=== PATIENT | female | born 1995 | race African-American/Black ===

== ENCOUNTER 2018-12-23 06:18 | Emergency (ER) | payer OTHER ==
[~2018-12-23] VITALS: Ht 160 cm; Wt 75.0 kg
[2018-12-23] MEDS ORDERED: BISACODYL 10 MG SUPP PR ONE (07:15)
--- NOTE | 2018-12-23 07:33 | REP ---
Clinical: Constipation. Technique: Single supine view of the abdomen and pelvis. Findings: Bowel gas pattern is nonspecific. No organomegaly. No abnormal calcifications or foreign body. Skeletal structures are intact. Impression: Nonspecific bowel gas pattern. Electronically Signed by Stefan Alford MD 12/23/2018 07:24 A
[2018-12-23] MEDS ORDERED: FLEET OIL RETENTION ENEMA PR ONE (08:45)
[2018-12-23] MEDS ORDERED: COLA100C5 PO (08:50)
[2018-12-23] MEDS ORDERED: MIRA3350 PO (08:50)
[2018-12-23 09:06] VITALS: BP 107/55
== END 2018-12-23 09:15 | disposition home or self-care (01) ==
LOC: M ED 06:18
DX: K59.00 Constipation, unspecified (principal)